=== PATIENT | female | born 1960 | race Caucasian/White ===

== ENCOUNTER → 2021-11-06 13:25 | Outpatient (CLI) | payer OTHER, SELFPAY ==
--- NOTE | ~2021-11-06 | MM_ITS ---
EXAMINATION: MM screening [facility] BI w oziel HISTORY: Screening TECHNIQUE: Craniocaudal and mediolateral oblique 3-D tomosynthesis images were obtained and synthetic 2-D images were generated. CAD analysis was submitted and interpreted. COMPARISON: 06/08/2019 BREAST PARENCHYMAL COMPOSITION: There are scattered areas of fibroglandular density. FINDINGS: There is no evidence of suspicious mass, calcification, or architectural distortion to sugg est malignancy in either breast. There has been no suspicious interval change. IMPRESSION: 1. No mammographic evidence of malignancy. 2. Recommend routine screening mammography in one year. BI-RADS Category 1: Negative Reviewed, dictated and finalized at location A. EWATER MANAGER
== END ==
PROVIDERS: PCP Internal Medicine; Visit Provider Internal Medicine
DX: Z12.31 Encounter for screening mammogram for malignant neoplasm of breast (principal)
CPT/HCPCS: 77063; 77067

== ENCOUNTER 2022-09-21 13:43 | Outpatient (CLI) | payer OTHER, SELFPAY ==
--- NOTE | ~2022-09-21 | US_ITS ---
Pelvic ultrasound. Clinical History: Pelvic pain Technique: Realtime transabdominal and transvaginal scanning of the pelvis was performed. Color flow Doppler and Doppler spectral analysis were performed. Findings: The uterus is anteverted. The endometrial stripe has a thickness of 14 mm, less scattered small cystic areas within it. Small anterior intramural fibroid measures 1.6 cm is in diameter. The right ovary measures 2.7 x 1.2 x 2.6 cm. No significant right ovarian or adnexal mass is seen. The left ovary measures 2.1 x 1.7 x 1.3 cm. No significant left ovarian or adnexal mass is seen. Vascular flow present in both ovaries on Doppler spectral analysis. There is no evidence of free fluid in the cul de sac. Impression: Abnormal thickening of the endometrial stripe given patient age. Endometrial neoplasm and endometrial hyperplasia are within the differential diagnosis. Additional workup required. Consider hysteroscopy and/or endometrial biopsy. Reviewed, dictated and finalized at [facility]. [facility] GRINDER Impression: Abnormal thickening of the endometrial stripe given patient age. Endometrial ne oplasm and endometrial hyperplasia are within the differential diagnosis. Addit ional workup required. Consider hysteroscopy and/or endometrial biopsy.
== END 2022-09-21 13:44 | disposition home or self-care (01) ==
PROVIDERS: PCP Internal Medicine; Visit Provider Obstetrics & Gynecology
DX: R10.2 Pelvic and perineal pain (principal); R93.89 Abnormal findings on diagnostic imaging of other specified body structures
CPT/HCPCS: 76830; 76856

== ENCOUNTER 2023-01-20 11:22 | Outpatient (CLI) | payer OTHER, SELFPAY ==
--- NOTE | 2023-01-20 11:43 | ECG_ITS ---
Measurements Intervals [place] Rate: 80 P: 70 SD: 145 QRS: 20 QRSD: 92 T: 19 QT: 384 QTc: 444 Interpretive Statements SINUS RHYTHM NORMAL ECG NO PREVIOUS ECG AVAILABLE FOR COMPARISON Electronically Signed On 01-20-2023 12:03:40 CDT by Jose Manuel Calloway D.O.
== END 2023-01-20 11:23 | disposition home or self-care (01) ==
LOC: ANHCARD 11:25
PROVIDERS: PCP Internal Medicine; Visit Provider Obstetrics & Gynecology
DX: R01.1 Cardiac murmur, unspecified (principal); Z01.818 Encounter for other preprocedural examination
CPT/HCPCS: 93005

== ENCOUNTER 2023-02-09 01:32 | Day surgery (SDC) | payer OTHER, SELFPAY ==
[2023-02-02 13:06] VITALS: BMI 48.6
--- NOTE | 2023-02-02 13:13 | PC.NURSE ---
Report to the Outpatient Waiting Room, entrance under the green pavilion located off [facility], at time 0600 on date 02/09/23. Planned Procedure Time: 0730. Time changes happen often and if your time is changed the preop area will call you the afternoon before. - You and your visitor will be asked to self-screen and do not enter if you have any COVID symptoms. - A mask is optional within the hospital at this time. Patients may have clear liquids (water, carbonated beverages, clear teas, apple juice) until 3 hours prior to surgery with a maximum of 20 ounces. - No food from midnight until time of surgery Take the following medications with a SIP of water the morning of surgery: LEVOTHYROXINE DO NOT STOP ANY OF YOUR OTHER PRESCRIPTION MEDICATIONS PRIOR TO SURGERY?EXCEPT THE FOLLOWING Medications to discontinue per physician: VITAMINS Date to take last dose: 02/05/23 Please no make-up, nail new zealander, hairspray, perfume, deodorant, or body powder the day of surgery. No jewelry (including any body piercings) or valuables the day of surgery, leave them at home. Please take a shower or bath the night before, or the morning of, surgery with an antibacterial soap. Wear comfortable, loose fitting clothing. - Jewelry must be removed prior to entering the operating room. Rings and piercings that are not removed may be cut off. - The hospital will not accept responsibility for valuables. - Please leave all valuables, including medications, at home the day of surgery. If you are going home after surgery, a licensed hydraulic lift driver must drive you home. - NO public transportation without another adult if you receive anesthesia. - We recommend that an adult stay with you for 24 hours following discharge. - We also recommend that you do not drive, make important decision, drink alcoholic beverages, or take any drugs that were not prescribed by your health care provider for at least 24 hours after your discharge time. Follow any additional instructions given to you from your surgeon. If you or anyone in your household have experienced Covid symptoms in the past week, please notify your surgeon or the nurse liaison at the phone number below for possible testing. Telephone instructions given to PT - ANIA BARRIOS and asked if any additional questions and then verbalized understanding. Patient advised to call surgeon office or pre surgery nurse liaison [phone] if any additional questions.
--- NOTE | 2023-02-08 22:37 | PM.IMHP ---
H&P: HPI History of Present Illness Date/Time: 02/08/23 22:37 Chief Complaint: Complex hyperplasia Narrative: She is scheduled for a D and C hysteroscopy due to having focal and complex hyperplasia without atypia on endometrial biopsy. The biopsy was performed due to incidental finding of thickened endometrium which was on ultrasound that was ordered due to pelvic pain. She has never had postmenopausal spotting or bleeding. Review of Systems Review of Systems: All systems reviewed & are unremarkable except as noted in HPI and below Cardiovascular: Cardiovascular: Reports no additional cardiovascular complaints, Denies chest pain and Denies dyspnea Respiratory: Respiratory: Reports no additional respiratory complaints and Denies dyspnea Gastrointestinal: Gastrointestinal: Reports abdominal pain, Denies change in bowel habits, Denies diarrhea, Denies nausea and Denies vomiting Genitourinary: Genitourinary: Reports pelvic pain Musculoskeletal: Musculoskeletal: Reports back pain Integumentary/Breasts: Skin/Breast: Reports system reviewed and no additional complaints, except as docu Neurologic: Reports system reviewed and no additional complaints, except as documented [facility] Past Medical History Medical History Anxiety Hyperlipemia Hypertension Thyroid disorder Surgical History Surgical History H/O tubal ligation Family History Family History Mother Family history of lung cancer Grandparent Family history of malignant neoplasm of breast Social History Social History Smoking packs per day: 1 Smoking cigarettes per day: 20.0 Years smoked: 10 Smoking pack-years: 10.00 Smoking status: Former smoker Tobacco type: cigarettes Smoking end date: 09/19/95 Alcohol intake: current Drinks per week: 5 Substance use: never Substance use type: does not use Living arrangements: alone Spiritual care concerns: No Meds Home Medications and Allergies Home Medications Medication Instructions Recorded Confirmed Type cholecalciferol (vitamin D3) 25 25 mcg PO DAILY 09/09/22 02/02/23 History mcg (1,000 unit) capsule levothyroxine 200 mcg capsule 200 mcg PO DAILY 09/09/22 02/02/23 History lisinopril 40 mg tablet 40 mg PO DAILY 09/09/22 02/02/23 History simvastatin 40 mg tablet 40 mg PO DAILY 09/09/22 02/02/23 History Allergies Allergy/AdvReac Type Severity Reaction Status Date / Time No Known Allergies Allergy Verified 02/02/23 13:04 Exam Const: Orientation/consciousness: oriented to person and oriented to place HENMT: Head: normal to inspection Eyes: General: appearance normal, both eyes and all related structures Resp: Effort & Inspection: normal respiratory effort Auscultation: clear to auscultation bilaterally Cardio: Rate: regular rate Rhythm: regular rhythm GI: Inspection: normal to inspection GI Palp: No Rebound tenderness present Neuro: General: oriented to person and oriented to place Cognition (Neuro): normal cognition Extrem: General: normal to inspection Psych: Appearance: grossly normal and well kempt Assessment and Plan Assessment and plan (1) Endometrial hyperplasia without atypia: Code(s): N85.00 - Endometrial hyperplasia, unspecified Status: Acute Assessment and Plan: Will proceed with D and C hysteroscopy, possible removal or biopsy of any concerning lesion with Aveta.
[2023-02-09 06:15] VITALS: BP 149/109; PULSE 81; RESP 20; TEMP 36.6; O2SAT 98
[2023-02-09] MEDS: ACETAMINOPHEN 500 MG TABLET 1000 MG PO (06:44)
[2023-02-09] MEDS: LACTATED RINGERS 1,000 ML 30 ML IV CONT (06:45)
--- NOTE | 2023-02-09 07:02 | WPDANESEPPF ---
Anes - Initial Pre Proc Eval Procedure: Operation Date: 02/09/23 07:30 Proposed Procedures p Hysteroscopy Dilation and Curettage with Removal of Any Endometrial Lesion if Necessary - Michael Anthony MD Date/Time: 02/09/23 07:02 Surgeon: Michael Anthony MD Pre Op Diagnosis: complex hyperplasia Patient Data Age: 62 Gender: F Height: 1.66 m Weight: 138.1 kg Last Vital Signs Temp 36.6 C 02/09/23 06:15 Pulse 81 02/09/23 06:15 Resp 20 02/09/23 06:15 BP 149/109 H 02/09/23 06:15 Pulse Ox 98 02/09/23 06:15 O2 Del Method Room Air 02/09/23 06:15 Allergies Allergy/AdvReac Type Severity Reaction Status Date / Time No Known Allergies Allergy Verified 02/09/23 06:26 Home Medications Medication Instructions Recorded Confirmed Type cholecalciferol (vitamin D3) 25 25 mcg PO DAILY 09/09/22 02/09/23 History mcg (1,000 unit) capsule levothyroxine 200 mcg capsule 200 mcg PO DAILY 09/09/22 02/09/23 History lisinopril 40 mg tablet 40 mg PO DAILY 09/09/22 02/09/23 History simvastatin 40 mg tablet 40 mg PO DAILY 09/09/22 02/09/23 History Patient hx anesthesia problems: none Family hx anesthesia problems: none Results Review: All pre-operative results and documents have been reviewed as part of the pre-operative evaluation. [facility] Past Medical History Medical History Anxiety Hyperlipemia Hypertension Thyroid disorder Surgical History Surgical History H/O tubal ligation Family History Family History Mother Family history of lung cancer Grandparent Family history of malignant neoplasm of breast Social History Social History Smoking packs per day: 1 Smoking cigarettes per day: 20.0 Years smoked: 10 Smoking pack-years: 10.00 Smoking status: Former smoker Tobacco type: cigarettes Smoking end date: 09/19/95 Alcohol intake: current Drinks per week: 5 Substance use: never Substance use type: does not use Living arrangements: alone Spiritual care concerns: No Anes - Eval Final PreProcedure Day of Procedure 02/09/23 07:02 Patient weight: morbidly obese Heart: regular rate and rhythm Lungs: clear to auscultation Airway: Mallampati scale class II and other (dentures) Neurological: alert and oriented Last oral intake: >/= 8 hours ASA classification: III Emergent: no Anesthesia type and monitoring: general GIVS and standard monitoring Results Review: All pre-operative results and documents have been reviewed as part of the pre-operative evaluation. Informed Consent: The patient's anesthetic plan and its attendant risks and benefits were discussed with the patient/family/POA. Questions were solicited and answers provided to the satisfaction of the patient/family/POA.
--- NOTE | 2023-02-09 07:23 | WPDHPUPDATE1 ---
History and Physical Update Update Date/Time: 02/09/23 07:23 History and Physical has been reviewed, including an updated exam of the patient. There are NO changes in the patient's condition. Risks, benefits, and alternatives have been discussed and questions answered. Patient agrees to proceed with procedure.
--- NOTE | 2023-02-09 07:25 | WPDHPUPDATE1 ---
History and Physical Update Update Date/Time: 02/09/23 07:25 History and Physical has been reviewed, including an updated exam of the patient. There are NO changes in the patient's condition. Risks, benefits, and alternatives have been discussed and questions answered. Patient agrees to proceed with procedure.
[2023-02-09] MEDS: LIDOCAINE HCL 1% LOCAL INJ 20 ML VIAL 10 ML INFILTRATE (07:30)
[2023-02-09] MEDS: ceFAZolin 3 GM/D5W 100 ML 100 ML IVPB (07:30)
[2023-02-09 08:08] VITALS: BP 137/79; PULSE 76; RESP 14; O2SAT 96
[2023-02-09 08:30] VITALS: BP 153/62; PULSE 65; RESP 16; O2SAT 97
[2023-02-09 08:45] VITALS: BP 166/92; PULSE 62; RESP 16
--- NOTE | 2023-02-09 13:06 | P.OP_ITS ---
Procedure Note - Detailed Date of Procedure 02/09/23 Pre-op Diagnosis complex hyperplasia Post-op Diagnosis Other (Endometrial polyp) Procedure Performed Hysteroscopy dilation and curettage removal of endometrial polyp. Surgeon Michael Anthony MD Anesthesia MAC and Local Indications Patient with thickened endometrium and office biopsy showing complex hyperplasia. Findings Uterus sound to 8 cm. There was a small polyp noted in the lower uterine segment posterior. The rest of the cavity was atrophic minimal tissue obtained with curettage. Cavity normal after removal of the endometrial lesion Description of Procedure After informed consent was obtained patient was taken to operating room an adequate IV sedation was administered she was placed in low lithotomy position and prepped and draped in sterile fashion attention was turned to the vagina speculum was inserted single-tooth tenaculum placed on the anterior lip of the cervix. She was given 10 cc of 1% lidocaine plain at the cervical vaginal int erface at the 258 and 10 position. The cervix was dilated. The hysteroscope was inserted. There was noted to be a polyp at the lower part of the uterus. This was grabbed initially with a stone forceps and then the hysteroscope was inserted and a residual piece of the polyp was present and this was removed completely with the Aveta resection instrument. A curettage was performed after this minimal tissue obtained. Patient tolerated procedure well. Sponge count correct. Estimated Blood Loss -5.0 Drains No Packing No Pathology Yes (Endometrial polyp lesion and curettage specimen) Complications No immediate complications Condition Stable Disposition Same day [facility] Billing Surgery - Charge Forward: Surgery Billing
== END 2023-02-09 09:01 | disposition home or self-care (01) ==
PROVIDERS: PCP Internal Medicine; Visit Provider Obstetrics & Gynecology
PROC: 0U5B8ZZ Destruction of Endometrium, Via Natural or Artificial Opening Endoscopic (ICD-10-PCS; CPT 58563; principal; 2023-02-09 07:30)
DX: N84.0 Polyp of corpus uteri (principal); E78.5 Hyperlipidemia, unspecified; I10 Essential (primary) hypertension; Z87.891 Personal history of nicotine dependence
CPT/HCPCS: 58558; 88305; 93005; A9270; J0690; J2250; J3010; J7120

== ENCOUNTER 2024-07-04 12:48 | Outpatient (CLI) | payer OTHER, SELFPAY ==
--- NOTE | ~2024-07-04 | MM_ITS ---
EXAMINATION: MM screening [facility] BI w oziel HISTORY: Screening TECHNIQUE: Craniocaudal and mediolateral oblique 3-D tomosynthesis images were obtained and synthetic 2-D images were generated. CAD analysis was submitted and interpreted. COMPARISON: Comparison to multiple prior studies sequentially, with oldest reviewed study dated 06/08. BREAST PARENCHYMAL COMPOSITION: Not dense: There are scattered areas of fibroglandular density. FINDINGS: There is no evidence of suspicious mass, calcification, or architectural distortion to sugg est malignancy in either breast. There has been no suspicious interval change. IMPRESSION: 1. No mammographic evidence of malignancy. 2. Recommend routine screening mammography in one year. BI-RADS Category 1: Negative Reviewed, dictated and finalized at location B.
== END 2024-07-04 12:49 | disposition home or self-care (01) ==
PROVIDERS: PCP Internal Medicine; Visit Provider Obstetrics & Gynecology
DX: Z12.31 Encounter for screening mammogram for malignant neoplasm of breast (principal)
CPT/HCPCS: 77063; 77067